=== PATIENT | male | born 1995 | race Caucasian/White ===

== ENCOUNTER 2023-08-08 10:39 | Outpatient (AMB) | payer MEDICAID, SELFPAY ==
--- NOTE | 2023-08-08 11:27 | AM.OFFWIN_ITS ---
Intake Vital Signs 08/08/23 11:43 Height 6 ft 5 in Weight 265 lb BMI 31.4 BP 126/80 Blood Pressure Location Rt brachial Position Sitting Pulse 70 Pulse Source Pulse Oximeter Temp 98.1 F Temp Source Oral Pulse Oximetry (%) 98 Oxygen Delivery Method Room Air Intake Visit Reasons: [employer] UTI [phone] Intake Note: Patient here for possible UTI. Pt is experiencing discomfort, burning sensation that has been going on for about 3-5 days. Allergies pollen extracts [POLLEN] Allergy (Mild, Unverified 08/08/23 11:30) ITCHINESS Do you need a note to return to daycare/school/sports/work: No HPI HPI Comments History of Present Illness Details Patient is a 28-year-old male complaining of small amount of white discharge from his penis as well as some pain with urination x 3 days. He states he had unprotected sex with an ex-girlfriend a week ago. Is concerned this is a sexually transmitted infection or a urinary tract infection. Review of Systems Const All systems reviewed & are unremarkable except as noted in HPI and below Physical Exam Vital Signs: Last Vital Signs Temp 98.1 F 08/08/23 11:43 Pulse 70 08/08/23 11:43 BP 126/80 08/08/23 11:43 Pulse Ox 98 08/08/23 11:43 Oxygen Delivery Method Room Air 08/08/23 11:43 BMI result Body Mass Index 31.4 Const General: cooperative, healthy appearing, comfortable, no acute distress and well developed Orientation/consciousness: patient oriented x3 Limitations: no limitations HEENT Head: Yes normal to inspection Eyes General: appearance normal, both eyes and all related structures Neck Neck: Yes normal visual inspection and Yes full ROM Resp Effort & Inspection: normal respiratory effort and able to speak in complete sentences Skin General skin exam: no rashes or lesions noted Neuro General: patient oriented x3 Extrem General: Yes normal to inspection Results AMB Urinalysis, Automated UA Leukoctes 0 Drea/uL Last Edit by YURI Maldonado on 08/08/23 11:46 UA Nitrite Negative Last Edit by YURI Maldonado on 08/08/23 11:46 UA Urobilinogen 0.2 mg/dL Last Edit by YURI Maldonado on 08/08/23 11:46 UA Protein 100 mg/dL Last Edit by YURI Maldonado on 08/08/23 11:46 UA pH 6.0 Last Edit by Bhavik Leonard [facility] on 08/08/23 11:46 UA Blood 0 [place]/uL Last Edit by Bhavik Leonard [facility] on 08/08/23 11:46 UA Specific [place] 1.025 Last Edit by Bhavik Leonard [facility] on 08/08/23 11:46 UA Ketone Negative Last Edit by Bhavik Leonard [facility] on 08/08/23 11:46 UA Bilirubin 0 mg/dL Last Edit by Bhavik Leonard [facility] on 08/08/23 11:46 UA Glucose 0 mg/dL Last Edit by Bhavik Leonard [facility] on 08/08/23 11:46 Results Reviewed Results Reviewed: Laboratory Last Values Urine pH (Auto) 6.0 08/08/23 11:44 Specific [place] (Auto) 1.025 08/08/23 11:44 Urine Protein (Auto) 100 mg/dL 08/08/23 11:44 Glucose (UA)(Auto) 0 mg/dL 08/08/23 11:44 Urine Ketones (Auto) Negative 08/08/23 11:44 Urine Blood (Auto) 0 [place]/uL 08/08/23 11:44 Urine Nitrite (Auto) Negative 08/08/23 11:44 Urine Bilirubin (Auto) 0 mg/dL 08/08/23 11:44 Urine Urobilinogen (Auto) 0.2 mg/dL 08/08/23 11:44 Leukocyte Esterase (Auto) 0 Drea/uL 08/08/23 11:44 Assessment & Plan Assessment & Plan (1) Penile discharge: Code(s): R36.9 - Urethral discharge, unspecified Plan UA negative for infection, sent CT NG urine testing. Recommended to use protection if he is going to have sexual intercourse until we have the results. Orders: Orders AMB Urinalysis Automated Today Z13.9 - Encounter for screening, unspecified CT NG by PCR Today R36.9 - Urethral discharge, unspecified Coding Level of Care Code Est Pt Level 3 (60752) Diagnoses Penile discharge R36.9
[2023-08-08 11:43] VITALS: BP 126/80; PULSE 70; TEMP 36.7; O2SAT 98; BMI 31.4
== END 2023-08-08 12:15 | disposition home or self-care (01) ==
PROVIDERS: Visit Provider Physician Assistant
DX: R36.9 Urethral discharge, unspecified (principal)
CPT/HCPCS: 81003; 99213

== ENCOUNTER 2023-08-08 11:59 | Outpatient (REF) | payer MEDICAID, SELFPAY ==
[2023-08-08 17:52] LABS: CT PCR NOT DETECTED (Not Detect.); NG PCR NOT DETECTED (Not Detect.)
== END 2023-08-08 12:00 | disposition home or self-care (01) ==
LOC: HO.LAB 11:59
PROVIDERS: Visit Provider Physician Assistant
DX: R36.9 Urethral discharge, unspecified (principal)
CPT/HCPCS: 87491; 87591

== ENCOUNTER 2024-05-04 09:59 | Emergency (ER) | payer MEDICAID, SELFPAY ==
--- NOTE | ~2024-05-04 | XR_ITS ---
EXAMINATION: XR LUMBAR SPINE 2-3 VIEWS HISTORY: pain COMPARISON: There are no prior studies for comparison. FINDINGS: AP, lateral, and coned down views of the lumbar spine are submitted. Osseous mineralization is normal. Five nonrib-bearing lumbar vertebral bodies are identified, maintaining normal height and alignment without evidence of fracture or spondylolisthesis. There is mild degenerative disc disease with disc space narrowing and anterior spurring. The posterior elements are intact. The visualized paraspinal soft tissues are unremarkable. XR/XR lumbar spine 2-3V IMPRESSION: Mild degenerative disc disease. Electronically signed by: Colt Benitez MD 05/04/2024 03:35 PM EDT
[2024-05-04 10:07] VITALS: BP 149/84; PULSE 77; RESP 18; TEMP 36.3; O2SAT 98; BMI 33.8
[2024-05-04 15:09] VITALS: BP 141/85; PULSE 66; RESP 16; TEMP 36.4; O2SAT 98
--- NOTE | 2024-05-04 15:14 | ED_ITS ---
HPI - General Adult General Chief complaint: Back Pain/Injury Stated complaint: Pinching/pain in back Time Seen by Provider: 05/04/24 15:13 Source: patient Limitations: no limitations History of Present Illness ED Provider: Maria Guadalupe Alas PA-C HPI narrative: 29-year-old male presents with low back pain x3 days. Patient states he has an extremely physical job, performing heavy lifting frequently. Over the past 3 days he has developed extreme low back pain with radiation to both lower extremities. Denies bowel incontinence, urinary retention no erectile dysfunction. No weakness of lower extremities no paresthesia. There was no actual fall or trauma. Related Data Previous Rx's ?Medication ?Instructions ?Recorded ibuprofen 600 mg tablet 600 mg PO Q6H PRN pain #20 tabs 05/04/24 methocarbamol 750 mg tablet 1,500 mg (2 x 750 mg) PO Q8H PRN 05/04/24 pain, moderate #30 tabs Allergies Allergy/AdvReac Type Severity Reaction Status Date / Time pollen extracts [POLLEN] Allergy Mild ITCHINESS Verified 05/04/24 10:09 Review of Systems Review of Systems: Yes all other systems are reviewed and are negative Constitutional: Constitutional: Denies fatigue and Denies fever(s) Cardiovascular: Cardiovascular: Denies chest pain and Denies dyspnea Respiratory: Respiratory: Denies dyspnea Gastrointestinal: Gastrointestinal: Denies abdominal pain and Denies nausea Musculoskeletal: Musculoskeletal: Reports back pain, Reports muscle weakness, Denies numbness, Reports radiating pain into limb, Reports stiffness and Denies tingling Neurologic: Denies numbness and Denies tingling Endocrine: Endocrine: Denies fatigue PMF Past Medical History Attestation statement: The following information was validated with the patient. Social History Social History Advance Directives: No Advance Directives Information Provided: No Physical Exam ED Vital Signs: Vital Signs - 24 hr 05/04/24 10:07 05/04/24 15:09 Temperature 97.4 F 97.6 F Pulse Rate 77 66 Respiratory Rate 18 16 Blood Pressure 149/84 H 141/85 H Pulse Oximetry 98 98 Oxygen Delivery Method Room Air Room Air BMI result Body Mass Index 33.8 Const Other: Alert Orientation/consciousness: patient oriented x3 Resp Effort & Inspection: normal respiratory effort Cardio Other: Normal peripheral perfusion Skin Other: Warm dry no rash Neuro General: patient oriented x3, no focal motor deficits and CN's II-XI intact bilaterally Extrem Other: Strength 5/5 bilateral lower extremities Psych Other: Calm cooperative Medications Administered Discontinued Medications Generic Name Dose Route Start Last Admin Trade Name Ishmaelq PRN Reason Stop Dose Admin Ibuprofen 600 mg 05/04/24 15:46 05/04/24 15:57 Ibuprofen 600 Mg Tablet PO 05/04/24 15:47 600 mg ONCE ONE Administration Methocarbamol 1,500 mg 05/04/24 15:46 05/04/24 15:57 Methocarbamol 750 Mg Tablet PO 05/04/24 15:47 1,500 mg ONCE ONE Administration Medical Decision Making Medical Decision Making MDM Narrative: 29-year-old male presents with low back pain x3 days. Patient states he has an extremely physical job, performing heavy lifting frequently. Over the past 3 days he has developed extreme low back pain with radiation to both lower extremities. Denies bowel incontinence, urinary retention no erectile dysfunction. No weakness of lower extremities no paresthesia. There was no actual fall or trauma. Problem repetitive heavy lifting History: Per patient I have considered the following differential diagnoses: Lumbar strain, lumbar radiculopathy, cauda equina, compression fracture, arthritis Plan: X-ray ordered from triage. Patient will be treated for lumbar strain without radicular symptoms, he has no red flag signs symptoms concerning for cord compression. I have independently reviewed the following tests: X-ray lumbar spine: XR/XR lumbar spine 2-3V IMPRESSION: Mild degenerative disc disease. Discharge Plan Discharge Clinical Impression: Strain of lumbar region Patient Disposition: Home, Self-Care Instructions: Low Back Strain (ED), Lower Back Exercises (ED), Core Stren gthening Exercises (ED) Additional Instructions: You are being treated for lumbar strain. See home care instructions. Use ibuprofen 600 mg taken every 6 hours with food as an anti-inflammatory. Use the methocarbamol as needed for further pain. To note this medication will cause drowsiness, do not drive or operate machinery while taking the medication. Follow up with your primary care provider as needed. Given the physical nature of your job, and the repetitive activities that you perform, if your symptoms do not improve, you may require physical therapy. Prescriptions: New methocarbamol 750 mg tablet 1,500 mg PO Q8H PRN (Reason: pain, moderate) Qty: 30 0RF ibuprofen 600 mg tablet 600 mg PO Q6H PRN (Reason: pain) Qty: 20 0RF Stand Alone Forms: Work/School Release Print Language: Afghan
[2024-05-04] MEDS: Ibuprofen 600 MG TABLET PO (15:57)
[2024-05-04] MEDS: methocarbamoL 750 MG TABLET 1500 MG PO (15:57)
[2024-05-04 16:36] VITALS: BP 141/85; PULSE 66; RESP 16; TEMP 36.4; O2SAT 98
== END 2024-05-04 16:37 | disposition home or self-care (01) ==
PROVIDERS: Emergency Provider Emergency Medicine Emergency Medical Services
DX: S39.012A Strain of muscle, fascia and tendon of lower back, initial encounter (principal); X50.0XXA Overexertion from strenuous movement or load, initial encounter; X50.9XXA Other and unspecified overexertion or strenuous movements or postures, initial encounter; Y93.9 Activity, unspecified; Y92.89 Other specified places as the place of occurrence of the external cause; Y99.0 Civilian activity done for income or pay
CPT/HCPCS: 72100; 99283

== ENCOUNTER → 2024-05-04 15:13 | Outpatient (BNV) | payer MEDICAID, SELFPAY | PROVIDERS: Emergency Provider Emergency Medicine Emergency Medical Services; Visit Provider Radiology Diagnostic Radiology | DX: M54.50 Low back pain, unspecified (principal) | CPT/HCPCS: 72100 ==

== ENCOUNTER 2024-09-06 16:08 | Emergency (ER) | payer OTHER, MEDICAID, SELFPAY ==
[2024-09-06 17:09] VITALS: BP 163/79; PULSE 70; RESP 18; TEMP 36.6; O2SAT 99; BMI 32.4
--- NOTE | 2024-09-06 17:09 | ED.GENADULT ---
HPI - General Adult General Chief complaint: GI Bleed Stated complaint: rectal bleeding Time Seen by Provider: 09/06/24 21:57 Source: patient Mode of arrival: ambulatory Limitations: no limitations History of Present Illness ED Provider: Dr. Caron Batista HPI narrative: 29-year-old male with no significant past medical history presenting with painful hemorrhoids that have been ongoing for the last 4 days. Patient admits that he had several episodes of loose, nonbloody stools per day for at least 4 days prior to developing a single painful hemorrhoid. Feels that he was not straining but had been going to the bathroom frequently. No associated vomiting. Today he had a large amount of blood in the bowl which concerned him. He has been using hemorrhoid cream and wipes without relief. No chest pain or difficulty breathing. No syncope or near-syncope. Denies associated fever. Denies abdominal pain. Related Data Previous Rx's ?Medication ?Instructions ?Recorded ibuprofen 600 mg tablet 600 mg PO Q6H PRN pain #20 tabs 05/04/24 methocarbamol 750 mg tablet 1,500 mg (2 x 750 mg) PO Q8H PRN 05/04/24 pain, moderate #30 tabs Allergies Allergy/AdvReac Type Severity Reaction Status Date / Time pollen extracts (POLLEN) Allergy Mild ITCHINESS Verified 09/06/24 17:11 diphenhydramine (From AdvReac Drowsy Verified 09/06/24 17:12 Benadryl) Review of Systems Review of Systems: as per HPI, full review of systems performed and negative but for the above mentioned pertinent positives and negatives. [facility] Past Medical History [facility] Narrative: Tobacco use daily, occasional alcohol use Social History Social History Alcohol intake: never Smoked in Last 30 Days: No Use of substances other than those prescribed or required for medical reasons: No Advance Directives: No Advance Directives Information Provided: No Physical Exam ED Exam Exam: Exam: Constitutional: ?Well-appearing, no acute distress HEENT: ?No lymphadenopathy, neck is supple, trachea midline, PERRLA, EOMI, no nystagmus Chest: ?Equal rise, no crepitus, no deformities Respiratory: ?Lungs are clear to auscultation bilaterally, no wheezes/rales/rhonchi Cardio: ?Regular rate and rhythm, no murmurs rubs or gallops, peripheral pulses strong GI: ?Soft, nondistended, nontender to palpation, positive bowel sounds in all quadrants : Deferred Skin: ?Warm, dry, no rashes Musculoskeletal: ?No deformities, normal tone Neuro: ?Alert and oriented, cranial nerves 2-12 intact, equal strength and sensation in bilateral upper and lower extremities Psych: ?Normal affect, appropriate mood, no visual or auditory hallucinations Vital Signs: Vital Signs - 24 hr 09/06/24 17:09 09/06/24 23:02 Temperature 97.9 F 97.2 F Pulse Rate 70 58 Respiratory Rate 18 16 Blood Pressure 163/79 H 144/93 H Pulse Oximetry 99 99 Oxygen Delivery Method Room Air Room Air BMI result Body Mass Index 32.4 Course Course Course Narrative: This is a rapid medical exam performed by Vibha Lenz NP: Additional HPI, ROS, PE not included below will be deferred to primary provider. Patient is a 29-year-old male presenting with complaint of rectal bleeding for the past 3-4 days. Prior to onset of symptoms, was having frequent bowel movements for a day. Area not visualized in triage due to privacy concerns. Noted bleeding on underwear while at work not associated with a BM. Denies pain currently, but states pain comes and goes. Medical Decision Making Medical Decision Making [facility] Narrative: Patient presents today with a chief complaint of possible GI bleed. Differential diagnosis includes rectal bleeding from sources such as a fissure, hemorrhoid, lower GI bleed, diverticulitis, upper GI bleeding, peptic ulcer disease, perforation, esophageal bleed, among many others. Broad-based work-up was initiated based on the patient's presentation. Patient is well-appearing, no evidence of dehydration or significant anemia. Using shared decision making, plan for discharge home to follow-up with primary care and/or specialist. Patient understands and agrees with plan for discharge. Discharged home in stable condition. Differential Diagnosis Differential Diagnoses: The differential diagnosis associated with the presentation includes (As above) Admission/Observation Consideration of admission/observation: Escalation of care including admission/observation considered Lab Data [facility] Lab Attestation statement: I reviewed the patient's lab results. No significant anemia 09/06/24 17:24 Labs: Lab Results 09/06/24 Range/Units 17:24 WBC 8.0 (4.8-10.8) X10*3/uL RBC 5.02 (4.60-5.80) X10*6/uL Hgb 15.7 (14.0-18.0) g/dl Hct 43.7 (42.0-52.0) % MCV 87.1 (80.0-98.0) fL MCH 31.3 (27.0-33.0) pg MCHC 35.9 (31.0-36.0) g/dl RDW 12.2 (11.0-16.0) % Plt Count 279 (160-400) X10*3/uL MPV 9.6 (9.4-12.4) fL Immature Gran % (Auto) 0.4 (0.0-0.4) % Neut % (Auto) 62.9 (45-73) % Lymph % (Auto) 26.5 (20-40) % [place] % (Auto) 7.3 (2-11) % Eos % (Auto) 2.5 (0-4) % Baso % (Auto) 0.4 (0-2) % Lymph # (Auto) 2.1 (1.2-4.9) X10*3/uL [place] # (Auto) 0.6 (0.1-1.2) X10*3/uL Eos # (Auto) 0.2 (0.0-0.4) X10*3/uL Baso # (Auto) 0.0 (0.0-0.2) X10*3/uL Abs Immat Gran (auto) 0.03 (0.00-0.03) X10*3/uL Absolute Neuts (auto) 5.0 (2.0-8.3) x10*3/uL Absolute Nucleated RBC 0.000 (0.0-0.012) X10*3/uL Nucleated RBC % (auto) 0.0 (0.0-0.2) /100WBC Discharge Plan Discharge Clinical Impression: Bleeding hemorrhoids Patient Disposition: Home, Self-Care Instructions: Hemorrhoids (ED) Additional Instructions: Keep using preparation H for your hemorrhoids. Try taking a stool softener to avoid having to strain to have a bowel movement. You should introduce more fiber to your diet as well. Return to the ER with any new or worsening symptoms including: Fevers greater than 100?, worsening bleeding despite preparation H treatment, severe abdominal pain, inability to tolerate food or drink, any new symptom that concerns you. Call 911 with any medical emergency. Prescriptions: No Action methocarbamol 750 mg tablet 1,500 mg PO Q8H PRN (Reason: pain, moderate) Qty: 30 0RF ibuprofen 600 mg tablet 600 mg PO Q6H PRN (Reason: pain) Qty: 20 0RF Interventions: ED Discharge Assessment Last Done: 09/06/24 23:45 Discharge Date/Time: 09/06/24 23:45 Print Language: Sinhala
[2024-09-06 17:42] LABS: MANUAL DIFF FLAG NO
[2024-09-06 17:44] LABS: Hematocrit 43.7 % (42.0-52.0); Hemoglobin 15.7 g/dl (14.0-18.0); Imm Gran Abs Auto 0.03 X10*3/uL (0.00-0.03); Imm Gran Pct Auto 0.4 % (0.0-0.4); Lymphocytes Absolute Auto 2.1 X10*3/uL (1.2-4.9); Mean Corpuscular HGB Conc 35.9 g/dl (31.0-36.0); Mean Corpuscular Hemoglobin 31.3 pg (27.0-33.0); Mean Corpuscular Volume 87.1 fL (80.0-98.0); NRBC Abs Auto 0.000 X10*3/uL (0.0-0.012); NRBC Pct Auto 0.0 /100WBC (0.0-0.2); Platelet Count 279 X10*3/uL (160-400); Red Blood Count 5.02 X10*6/uL (4.60-5.80); White Blood Count 8.0 X10*3/uL (4.8-10.8)
[2024-09-06 23:02] VITALS: BP 144/93; PULSE 58; RESP 16; TEMP 36.2; O2SAT 99
[2024-09-06 23:45] VITALS: BP 144/93; PULSE 58; RESP 16; TEMP 36.2; O2SAT 99
== END 2024-09-06 23:45 | disposition home or self-care (01) ==
PROVIDERS: Registered Nurse Emergency; Emergency Provider Emergency Medicine
DX: K64.9 Unspecified hemorrhoids (principal); K62.5 Hemorrhage of anus and rectum
CPT/HCPCS: 36415; 85025; 99283; 99284